=== PATIENT | male | born 1945 | race Caucasian/White ===

== ENCOUNTER 2021-04-08 01:01 | Emergency (ER) | payer MEDICARE ==
--- NOTE | 2021-04-08 01:12 | ERPHSYRPT ---
- History of Present Illness Time Seen by Provider: 04/08/21 01:04 Source: patient Exam Limitations: no limitations Physician History: The patient is a 75-year-old male with a past medical significant for hypertension presents with a chief complaint of palpitations. Onset was around 2200 this evening while at rest. He states he has had episodes off and on for the past 6 months that been brief and spontaneous resolved however this episode tonight would not resolve pro mpting him to seek treatment in the emergency department. He denies chest pain, shortness of breath, dizziness, syncope, nausea, vomiting or diaphoresis. The only takes medication for his blood pressure and denies any history of CAD, tachycardia, or new thyroid disease. He does not have a neurologist that he follows with as an outpatient. Timing/Duration: today Associated Symptoms: other (Palpitations), No nausea, No vomiting, No shortness of breath, No diaphoresis, No chest pain Allergies/Adverse Reactions: No Known Drug Allergies Allergy (Unverified 04/08/21 01:18) Home Medications: Finasteride 5 mg [Proscar 5 MG] 5 mg PO DAILY 04/08/21 [History] Losartan Potassium 100 mg PO DAILY 04/08/21 [History] Tamsulosin HCl 0.4 mg [Flomax 0.4 MG] 1 tab PO DAILY 04/08/21 [History] - Review of Systems Constitutional: No Fever, No Chills Respiratory: No Cough, No Cyanosis, No Dyspnea, No Dyspnea on Exertion (JMI) Cardiac: Palpitations, No Chest Pain, No Syncope, No Orthopnea Abdominal/Gastrointestinal: No Nausea, No Vomiting Genitourinary Symptoms: No Symptoms Musculoskeletal: No Symptoms Skin: No Symptoms Neurological: No Symptoms Psychological: No Symptoms All Other Systems: Reviewed and Negative - Nursing Vital Signs Nursing Vital Signs: Initial Vital Signs Temperature 96.8 F 04/08/21 01:02 Pulse Rate 198 H 04/08/21 01:02 Respiratory Rate 20 04/08/21 01:02 Blood Pressure 103/87 04/08/21 01:02 O2 Sat by Pulse Oximetry 99 04/08/21 01:02 Pain Scale Pain Intensity 0 - Physical Exam General Appearance: no apparent distress, alert Eye Exam: PERRL/EOMI, eyes nml inspection Ears, Nose, Throat Exam: normal ENT inspection, pharynx normal, moist mucous membranes Neck Exam: normal inspection, No non-tender, No supple Respiratory Exam: normal breath sounds, lungs clear, airway intact, No chest tenderness, No respiratory distress Cardiovascular Exam: regular rate/rhythm, tachycardia, other (SVT noted on the monitor. The patient had a 2+ radial pulse and seem to be tolerating his tachycardia well.), No murmur, No friction rub, No edema, No pulse deficit Gastrointestinal/Abdomen Exam: soft Back Exam: normal inspection Extremity Exam: normal inspection Neurologic Exam: alert, oriented x 3, cooperative Skin Exam: normal color, warm, dry, No rash SpO2: 99 O2 Delivery: Room Air - Course Nursing assessment & vital signs reviewed: Yes EKG Interpreted by Me: Left Yeoman Deviation, Left Bundle Branch Block, Other (SVT with aberrancy with a ventricular rate of 190 bpm.Left bundle branch block.) - Radiology Exams Chest X-ray Interpretation: Interpreted by me, Reviewed by me, Negative (No evidence of acute cardiopulmonary process.) Ordered Tests: Active Orders 24 hr Category Date Time Status [facility]iller STAT Care 04/08/21 01:07 Active EKG-ER Only STAT Care 04/08/21 01:06 Active IV Insertion STAT Care 04/08/21 01:06 Active CHEST 2 VIEWS (PA AND LAT) Stat Exams 04/08/21 01:06 Taken BMP Stat Lab 04/08/21 01:23 Completed CBC W DIFF Stat Lab 04/08/21 01:23 Completed MAGNESIUM Stat Lab 04/08/21 01:23 Completed NT PRO BNP Stat Lab 04/08/21 01:23 Completed PHOSPHOROUS Stat Lab 04/08/21 01:23 Completed TROPONIN Q3H Lab 04/08/21 01:23 Completed TROPONIN Q3H Lab 04/08/21 04:14 Completed TROPONIN Q3H Lab 04/08/21 07:15 Ordered TROPONIN Q3H Lab 04/08/21 10:15 Ordered TROPONIN Q3H Lab 04/08/21 13:15 Ordered TSH [TSH, 3RD Generation] Stat Lab 04/08/21 01:23 Completed Medication Summary Discontinued Medications Generic Name Dose Route Start Last Admin Trade Name Freq PRN Reason Stop Dose Admin Aspirin 324 mg 04/08/21 01:59 04/08/21 02:04 Aspirin 81 Mg Tab.Chew PO 04/08/21 02:00 324 mg STAT ONE Administration Metoprolol Succinate 25 mg 04/08/21 01:14 04/08/21 01:30 Metoprolol Succinate 25 Mg Xl Tab PO 04/08/21 01:15 25 mg STAT ONE Administration Metoprolol Succinate Confirm 04/08/21 01:30 Metoprolol Succinate 25 Mg Xl Tab Administered 04/08/21 01:31 Dose 25 mg .ROUTE .STK-MED ONE Lab/Rad Data: Laboratory Result Diagrams 04/08/21 01:23 04/08/21 01:23 Laboratory Results 04/08/21 04/08/21 04/08/21 Range/Units 04:14 01:23 01:23 WBC (4.0-10.5) K/mm3 RBC (4.1-5.6) M/mm3 Hgb (12.5-18.0) gm/dl Hct (42-50) % MCV (78-100) fl MCH (26-32) pg MCHC (32-36) g/dl RDW (11.5-14.0) % Plt Count (150-450) K/mm3 MPV (7.5-11.0) fl Gran % (36.0-66.0) % Eos # (Auto) (0-0.5) Absolute Lymphs (auto) (1.0-4.6) Absolute Monos (auto) (0.0-1.3) Lymphocytes % (24.0-44.0) % Monocytes % (0.0-12.0) % Eosinophils % (0.00-5.0) % Basophils % (0.0-0.4) % Absolute Granulocytes (1.4-6.9) Basophils # (0-0.4) Sodium (137-145) mmol/L Potassium (3.5-5.1) mmol/L Chloride (98-107) mmol/L Carbon Dioxide (22-30) mmol/L Anion Gap (5-15) MEQ/L BUN (9-20) mg/dL Creatinine (0.66-1.25) mg/dL Estimated GFR ML/MIN Glucose (74-106) mg/dL Calcium (8.4-10.2) mg/dL Phosphorus (2.5-4.5) mg/dL Magnesium (1.6-2.3) mg/dL Troponin I 0.144 H* 0.085 H* (0.000-0.034) ng/mL NT-Pro-B Natriuret Pep (0-1800) pg/mL TSH 3rd Generation 4.220 (0.47-4.68) mIU/L 04/08/21 04/08/21 Range/Units 01:23 01:23 WBC 9.3 (4.0-10.5) K/mm3 RBC 5.08 (4.1-5.6) M/mm3 Hgb 15.5 (12.5-18.0) gm/dl Hct 47.1 (42-50) % MCV 92.7 (78-100) fl MCH 30.5 (26-32) pg MCHC 32.9 (32-36) g/dl RDW 12.3 (11.5-14.0) % Plt Count 198 (150-450) K/mm3 MPV 10.6 (7.5-11.0) fl Gran % 53.3 (36.0-66.0) % Eos # (Auto) 0.16 (0-0.5) Absolute Lymphs (auto) 3.14 (1.0-4.6) Absolute Monos (auto) 1.02 (0.0-1.3) Lymphocytes % 33.8 (24.0-44.0) % Monocytes % 11.0 (0.0-12.0) % Eosinophils % 1.7 (0.00-5.0) % Basophils % 0.2 (0.0-0.4) % Absolute Granulocytes 4.94 (1.4-6.9) Basophils # 0.02 (0-0.4) Sodium 138 (137-145) mmol/L Potassium 4.1 (3.5-5.1) mmol/L Chloride 107 (98-107) mmol/L Carbon Dioxide 24 (22-30) mmol/L Anion Gap 11.5 (5-15) MEQ/L BUN 18 (9-20) mg/dL Creatinine 1.06 (0.66-1.25) mg/dL Estimated GFR > 60.0 ML/MIN Glucose 129 H (74-106) mg/dL Calcium 8.9 (8.4-10.2) mg/dL Phosphorus 3.5 (2.5-4.5) mg/dL Magnesium 2.0 (1.6-2.3) mg/dL Troponin I (0.000-0.034) ng/mL NT-Pro-B Natriuret Pep 1170 (0-1800) pg/mL TSH 3rd Generation (0.47-4.68) mIU/L - Progress Progress: improved Progress Note: 04/08/21 01:12 The patient converted to a sinus rhythm at a rate of 96 bpm after performing vagal maneuvers a couple times. Stated he was feeling better. 04/08/21 01:31 Nontoxic in appearance. The patient presents with an SVT that converted with vagal maneuvers. Looks like he is an underlying left bundle branch block that made the rhythm appeared like a wide-complex tachycardia but this is consistent with SVT with aberrancy. He is currently hemodynamically stable at this time and I will give him a dose of oral metoprolol to suppress his heart rate when he is symptomatic surge could be contributing to his symptoms. ALT and a cardiac work-up and assess his electrolytes and if he remains stable with no recurrent SVT, I believe he can be discharged home to follow-up as an outpatient with a club steward. I will see if there is a Holter monitor can be placed on the patient prior to discharge. I have a low suspicion for an ACS equivalent at this time in addition to a PE. I will test his thyroid function as well to make sure that over the screen for hyperthyroidism which could be contributing to his symptoms. Obtain a chest x-ray to eval for evidence of pneumonia or pulmonary mass. 04/08/21 01:34 04/08/21 02:02 The patient is troponin was mildly elevated and may be secondary to his tachycardia and is not due to a type I event and I have a low suspicion that this is secondary to a thrombus of the coronary artery or occlusion. I will seen a second troponin and talk to cardiology and a consulting manner about this we will arrange follow-up if the patient is indeed discharged. 04/08/21 02:48 The patient was reassessed upon that he was resting and in no obvious distress. His heart rate on telemetry was noted to be 70 to 80 bpm and appeared to be in normal sinus rhythm. I updated him with his work-up and his troponin was mildly elevated and this is likely secondary to his tachycardia. Will obtain a second troponin III hours after the first one and if there is no significant elevation, I believe he can be discharged home. 12/27/21 05:21 Patient's troponin is essentially doubled. He has no CP, but reportedly still nauseated. He wants to use the bathroom. 04/08/21 05:22 04/08/21 05:25 [facility] and on complete diversion. Calling on-call family med doc to see if will admit. 04/08/21 05:36 04/08/21 06:[address] Marcus and he agreed to admit for observation status. Patient will be admitted to med/surg with tele. Discussed with : Kaushik Counseled pt/family regarding: lab results, diagnosis, need for follow-up, rad results - Departure Departure Disposition: Observation Clinical Impression: SVT (supraventricular tachycardia), NSTEMI (non-ST elevated myocardial infarction) Condition: Good Critical Care Time: No Referrals: LEO CHRISTIANSON MD [Primary Care Provider] - Follow up/PCP as directed
[2021-04-08] MEDS ORDERED: Toprol-Xl 25MG Tablets PO ONE (01:14)
[2021-04-08 01:28] LABS: Absolute Neutrophil Ct (ANC) 4.94 (1.4-6.9); Basophil (Absolute #) 0.02 (0-0.4); Eosinophil % 1.7 % (0.00-5.0); Eosinophil (Absolute #) 0.16 (0-0.5); Hematocrit 47.1 % (42-50); Hemoglobin 15.5 gm/dl (12.5-18.0); Lymphocyte (Absolute #) 3.14 (1.0-4.6); Lymphocytes % 33.8 % (24.0-44.0); Mean Cell Volume 92.7 fl (78-100); Mean Corpuscular Hemoglobin 30.5 pg (26-32); Mean Corpuscular Hgb Concent. 32.9 g/dl (32-36); Mean Platelet Volume 10.6 fl (7.5-11.0); Monocyte (Absolute #) 1.02 (0.0-1.3); Neutrophil % 53.3 % (36.0-66.0); Platelet Count 198 K/mm3 (150-450); Red Blood Count 5.08 M/mm3 (4.1-5.6); Red Cell Distribution Width 12.3 % (11.5-14.0); White Blood Count 9.3 K/mm3 (4.0-10.5)
[2021-04-08] MEDS ORDERED: Toprol-Xl 25MG Tablets ONE (01:30)
[2021-04-08 01:47] LABS: ANION GAP 11.5 MEQ/L (5-15); BLOOD UREA NITROGEN 18 mg/dL (9-20); CHLORIDE 107 mmol/L (98-107); Calcium 8.9 mg/dL (8.4-10.2); Carbon Dioxide 24 mmol/L (22-30); Creatinine 1 1.06 mg/dL (0.66-1.25); EST GLOMERULAR FILTRATION RATE > 60.0 ML/MIN; Glucose 129 mg/dL (74-106); NT PRO BNP 1170 pg/mL (0-1800); PHOSPHOROUS 3.5 mg/dL (2.5-4.5); Potassium 4.1 mmol/L (3.5-5.1); SODIUM 138 mmol/L (137-145)
[2021-04-08] MEDS ORDERED: BABY ASPIRIN 81 MG CHEW PO ONE (01:59)
[2021-04-08 07:56] LABS: INFLUENZA A NEGATIVE (NEGATIVE); INFLUENZA B NEGATIVE (NEGATIVE); RESPIRATORY SYNCTIAL VIRUS NEGATIVE (Negative); SARS-CoV-2 Xpert Express NEGATIVE (NEGATIVE)
--- NOTE | 2021-04-08 09:19 | XRAY ---
Indication: Tachycardia. Comparison: January 04, 2015. PA/lateral chest again demonstrates normal heart and lungs with a few incidental tiny calcified granulomas. Bony thorax intact again with mild osteopenia, degenerative changes, and pectus excavatum deformity. No new/acute findings.
--- NOTE | 2021-04-08 11:44 | PCM.HP ---
History of Present Illness - Chief Complaint Chief Complaint: chest pain History of Present Illness: is a 75 year old male who presented to the ER last night with complaint of palpitations and shortness of breath, he had some diaphoresis as well. no chest pain, was found to have a heart rate of 190 on arrival, converted with vagal maneuvers, has an underlying left bundle once converted. 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 he has no complaints currently, no chest pain, no shortness of breath, no palpitations, feels well. - Review of Systems Constitutional: No Fever, No Chills Respiratory: No Cough, No Short Of Breath Cardiac: Palpitations, No Chest Pain, No Syncope, No Orthopnea, No PND Abdominal/Gastrointestinal: No Abdominal Pain, No Nausea, No Vomiting, No Diarrhea Genitourinary Symptoms: No Dysuria Skin: No Rash All Other Systems: Reviewed and Negative Medications & Allergies Home Medications: Home Medication List Finasteride 5 mg [Proscar 5 MG] 5 mg PO DAILY 04/08/21 [History Confirmed 04/08/21] Losartan Potassium 100 mg PO DAILY 04/08/21 [History Confirmed 04/08/21] Tamsulosin HCl 0.4 mg [Flomax 0.4 MG] 1 tab PO DAILY 04/08/21 [History Confirmed 04/08/21] Allergies/Adverse Reactions: Allergies Allergy/AdvReac Type Severity Reaction Status Date / Time No Known Drug Allergies Allergy Unverified 04/08/21 01:18 - Past Medical History Past Medical History: Yes Neurological History: No Pertinent History ENT History: No Pertinent History Cardiac History: Arrhythmia, Hypertension Respiratory History: Bronchitis Endocrine Medical History: No Pertinent History Musculoskelatal History: No Pertinent History GI Medical History: No Pertinent History History: No Pertinent History Pyscho-Social History: No Pertinent History Male Reproductive Disorders: Prostate Problems - Past Surgical History Past Surgical History: Yes Neuro Surgical History: No Pertinent History Cardiac History: No Pertinent History Respiratory Surgery: No Pertinent History GI Surgical History: Hemorrhoidectomy Genitourinary Surgical Hx: No Pertinent History Musculskeletal Surgical Hx: No Pertinent History Male Surgical History: No Pertinent History - Social History Smoking Status: Former smoker How long have you smoked: 20 Exposure to second hand smoke: No Alcohol: None Drug Use: none - Physical Exam Vital Signs: Vital Signs - 24 hr Temp Pulse Pulse Resp BP Pulse Ox 04/08/21 08:21 56 L 18 124/78 97 04/08/21 06:48 62 14 129/77 96 04/08/21 06:15 99 04/08/21 06:08 98.3 F 64 20 130/76 98 04/08/21 05:30 68 14 103/60 97 04/08/21 04:26 68 16 119/76 96 04/08/21 03:00 65 12 125/78 95 04/08/21 02:00 84 14 130/88 97 04/08/21 01:04 198 H 04/08/21 01:02 96.8 F 198 H 20 103/87 99 General Appearance: no apparent distress Neurologic Exam: alert, oriented x 3, cooperative Respiratory Exam: normal breath sounds, lungs clear, No respiratory distress Cardiovascular Exam: regular rate/rhythm, normal heart sounds, normal peripheral pulses Gastrointestinal/Abdomen Exam: soft, normal bowel sounds, No tenderness, No mass Extremity Exam: normal inspection, normal range of motion, pelvis stable Skin Exam: normal color, warm, dry, No rash Results - Labs Lab/Micro Results: Lab Results-Last 24 Hours 04/08/21 04/08/21 04/08/21 Range/Units 01:23 01:23 01:23 WBC 9.3 (4.0-10.5) K/mm3 RBC 5.08 (4.1-5.6) M/mm3 Hgb 15.5 (12.5-18.0) gm/dl Hct 47.1 (42-50) % MCV 92.7 (78-100) fl MCH 30.5 (26-32) pg MCHC 32.9 (32-36) g/dl RDW 12.3 (11.5-14.0) % Plt Count 198 (150-450) K/mm3 MPV 10.6 (7.5-11.0) fl Gran % 53.3 (36.0-66.0) % Eos # (Auto) 0.16 (0-0.5) Absolute Lymphs (auto) 3.14 (1.0-4.6) Absolute Monos (auto) 1.02 (0.0-1.3) Lymphocytes % 33.8 (24.0-44.0) % Monocytes % 11.0 (0.0-12.0) % Eosinophils % 1.7 (0.00-5.0) % Basophils % 0.2 (0.0-0.4) % Absolute Granulocytes 4.94 (1.4-6.9) Basophils # 0.02 (0-0.4) Sodium 138 (137-145) mmol/L Potassium 4.1 (3.5-5.1) mmol/L Chloride 107 (98-107) mmol/L Carbon Dioxide 24 (22-30) mmol/L Anion Gap 11.5 (5-15) MEQ/L BUN 18 (9-20) mg/dL Creatinine 1.06 (0.66-1.25) mg/dL Estimated GFR > 60.0 ML/MIN Glucose 129 H (74-106) mg/dL Calcium 8.9 (8.4-10.2) mg/dL Phosphorus 3.5 (2.5-4.5) mg/dL Magnesium 2.0 (1.6-2.3) mg/dL Troponin I 0.085 H* (0.000-0.034) ng/mL NT-Pro-B Natriuret Pep 1170 (0-1800) pg/mL TSH 3rd Generation (0.47-4.68) mIU/L Influenza Type A Ag (NEGATIVE) Influenza Type B Ag (NEGATIVE) RSV (PCR) (Negative) SARS-CoV-2 (PCR) (NEGATIVE) 04/08/21 04/08/21 04/08/21 Range/Units 01:23 04:14 06:17 WBC (4.0-10.5) K/mm3 RBC (4.1-5.6) M/mm3 Hgb (12.5-18.0) gm/dl Hct (42-50) % MCV (78-100) fl MCH (26-32) pg MCHC (32-36) g/dl RDW (11.5-14.0) % Plt Count (150-450) K/mm3 MPV (7.5-11.0) fl Gran % (36.0-66.0) % Eos # (Auto) (0-0.5) Absolute Lymphs (auto) (1.0-4.6) Absolute Monos (auto) (0.0-1.3) Lymphocytes % (24.0-44.0) % Monocytes % (0.0-12.0) % Eosinophils % (0.00-5.0) % Basophils % (0.0-0.4) % Absolute Granulocytes (1.4-6.9) Basophils # (0-0.4) Sodium (137-145) mmol/L Potassium (3.5-5.1) mmol/L Chloride (98-107) mmol/L Carbon Dioxide (22-30) mmol/L Anion Gap (5-15) MEQ/L BUN (9-20) mg/dL Creatinine (0.66-1.25) mg/dL Estimated GFR ML/MIN Glucose (74-106) mg/dL Calcium (8.4-10.2) mg/dL Phosphorus (2.5-4.5) mg/dL Magnesium (1.6-2.3) mg/dL Troponin I 0.144 H* (0.000-0.034) ng/mL NT-Pro-B Natriuret Pep (0-1800) pg/mL TSH 3rd Generation 4.220 (0.47-4.68) mIU/L Influenza Type A Ag NEGATIVE (NEGATIVE) Influenza Type B Ag NEGATIVE (NEGATIVE) RSV (PCR) NEGATIVE (Negative) SARS-CoV-2 (PCR) NEGATIVE (NEGATIVE) 04/08/21 04/08/21 Range/Units 06:50 10:10 WBC (4.0-10.5) K/mm3 RBC (4.1-5.6) M/mm3 Hgb (12.5-18.0) gm/dl Hct (42-50) % MCV (78-100) fl MCH (26-32) pg MCHC (32-36) g/dl RDW (11.5-14.0) % Plt Count (150-450) K/mm3 MPV (7.5-11.0) fl Gran % (36.0-66.0) % Eos # (Auto) (0-0.5) Absolute Lymphs (auto) (1.0-4.6) Absolute Monos (auto) (0.0-1.3) Lymphocytes % (24.0-44.0) % Monocytes % (0.0-12.0) % Eosinophils % (0.00-5.0) % Basophils % (0.0-0.4) % Absolute Granulocytes (1.4-6.9) Basophils # (0-0.4) Sodium (137-145) mmol/L Potassium (3.5-5.1) mmol/L Chloride (98-107) mmol/L Carbon Dioxide (22-30) mmol/L Anion Gap (5-15) MEQ/L BUN (9-20) mg/dL Creatinine (0.66-1.25) mg/dL Estimated GFR ML/MIN Glucose (74-106) mg/dL Calcium (8.4-10.2) mg/dL Phosphorus (2.5-4.5) mg/dL Magnesium (1.6-2.3) mg/dL Troponin I 0.223 H* 0.281 H* (0.000-0.034) ng/mL NT-Pro-B Natriuret Pep (0-1800) pg/mL TSH 3rd Generation (0.47-4.68) mIU/L Influenza Type A Ag (NEGATIVE) Influenza Type B Ag (NEGATIVE) RSV (PCR) (Negative) SARS-CoV-2 (PCR) (NEGATIVE) - Radiology Impressions Radiology Exams & Impressions: Radiology Procedures Category Date Time Status CHEST 2 VIEWS (PA AND LAT) Stat Exams 04/08/21 01:06 Completed ECHO W/2D AND DOPPLER [US] Routine Exams 04/08/21 06:11 Ordered - Other Procedures and Tests Respiratory Therapy 04/08/21 06:10 EKG Q8HX2,QAMX3,PRN EKG STAT Assessment/Plan (1) SVT (supraventricular tachycardia) Current Visit: Yes Status: Acute Assessment & Plan: appears to have had svt with abberancy since underlying left bundle. elevated troponin is likely related to rate in my opinion. echo is being done currently, uap to consult for cardiology. was given beta madi in ER, will continue. TSH wnl Code(s): I47.1 - SUPRAVENTRICULAR TACHYCARDIA (2) Left bundle branch block (LBBB) Current Visit: Yes Status: Acute Assessment & Plan: checking system for historical ekg, uncertain on chronicity of this finding. ech o and cardiology consult pending. Code(s): I44.7 - LEFT BUNDLE-BRANCH BLOCK, UNSPECIFIED (3) Elevated troponin Current Visit: Yes Status: Acute Code(s): R77.8 - OTHER SPECIFIED ABNORMALITIES OF PLASMA PROTEINS (4) Essential hypertension Current Visit: Yes Status: Acute Code(s): I10 - ESSENTIAL (PRIMARY) HYPERTENSION
[2021-04-08] MEDS: Proscar 5 MG PO SCH (14:40)
[2021-04-08] MEDS: Flomax 0.4 MG PO SCH (14:40)
[2021-04-08] MEDS: Cozaar 50 MG PO SCH (14:40)
[2021-04-09 06:10] LABS: Absolute Neutrophil Ct (ANC) 2.23 (1.4-6.9); Basophil (Absolute #) 0.03 (0-0.4); Eosinophil % 2.8 % (0.00-5.0); Eosinophil (Absolute #) 0.14 (0-0.5); Hemoglobin 14.5 gm/dl (12.5-18.0); Lymphocyte (Absolute #) 1.96 (1.0-4.6); Lymphocytes % 39.7 % (24.0-44.0); Mean Cell Volume 93.8 fl (78-100); Mean Corpuscular Hemoglobin 30.9 pg (26-32); Mean Platelet Volume 10.6 fl (7.5-11.0); Monocyte (Absolute #) 0.58 (0.0-1.3); Monocytes % 11.7 % (0.0-12.0); Neutrophil % 45.2 % (36.0-66.0); Platelet Count 181 K/mm3 (150-450); Red Blood Count 4.69 M/mm3 (4.1-5.6); Red Cell Distribution Width 12.3 % (11.5-14.0); White Blood Count 4.9 K/mm3 (4.0-10.5)
[2021-04-09 06:39] LABS: Risk Ratio 4.1
[2021-04-09 09:07] LABS: ANION GAP 10.6 MEQ/L (5-15); BLOOD UREA NITROGEN 15 mg/dL (9-20); CHLORIDE 108 mmol/L (98-107); Calcium 8.4 mg/dL (8.4-10.2); Carbon Dioxide 24 mmol/L (22-30); Creatinine 1 0.96 mg/dL (0.66-1.25); EST GLOMERULAR FILTRATION RATE > 60.0 ML/MIN; Glucose 98 mg/dL (74-106); MAGNESIUM 2.2 mg/dL (1.6-2.3); Potassium 4.1 mmol/L (3.5-5.1); SODIUM 138 mmol/L (137-145)
--- NOTE | 2021-04-09 09:50 | ECHO ---
Transthoracic echocardiographic examination and color Doppler was done on 04/08/2021. INDICATION: SVT and elevated troponin I. IMPRESSION: 1) THE LEFT VENTRICLE WAS ONLY PARTIALLY VISUALIZED MOSTLY IN THE PARASTERNAL VIEW. THIS DEMONSTRATED MILD HYPOKINESIA OF THE MID TO DISTAL SEPTUM. 2) THERE IS SOME MILD LEFT VENTRICULAR HYPERTROPHY. 3) THE MITRAL VALVE WAS SEEN AND THIS OPENS ADEQUATELY. THERE IS MILD MITRAL REGURGITATION. 4) THE AORTIC VALVE APPEARS TO OPEN ADEQUATELY. 5) THERE IS MINIMAL TRICUSPID REGURGITATION WITH RIGHT VENTRICULAR SYSTOLIC PRESSURE OF 30 MM OF MERCURY. This is a fairly limited study which precludes adequate assessment of intracardiac anatomy and physiology.
[2021-04-09] MEDS ORDERED: Toprol Xl 50 MG PO SCH (10:00)
[2021-04-09] MEDS ORDERED: NON-FORMULARY ITEM (Losartan Potassium [Losartan Potassium] 100 MG Tablet) PO SCH (10:00)
[2021-04-09] MEDS ORDERED: ECOTRIN 81 MG PO SCH (10:00)
[2021-04-09] MEDS ORDERED: Toprol-Xl 25MG Tablets PO SCH (10:00)
[2021-04-09] MEDS ORDERED: ZOCOR 20MG PO SCH (10:00)
--- NOTE | 2021-04-09 10:19 | PCM.DS ---
Discharge Summary Date of Admission: 04/08/21 08:43 Admitting Physician: LEO CHRISTIANSON Consults: Consults on Case 04/08/21 06:11 Consult Cardiology ROUTINE 04/08/21 10:00 Consult Cardiology ROUTINE Primary Care Provider: LEO CHRISTIANSON Allergies Allergies No Known Drug Allergies Allergy (Unverified 04/08/21 01:18) Hospital Summary - Hospital Course Hospital Course: pt arrived with palpitations and elevated heart rate, appeared to have SVT with left bundle branch block, converted with vagal maneuvers and started on beta madi, troponin increased but appears related to his heart rate as he has no chest pain, no shortness of breath and feels well. was seen by Dr Manuela Monterroso and will have outpatient lexiscan and continue low dose beta madi - Vitals & Intake/Output Vital Signs: Vital Signs Temperature 97.3 F 04/09/21 04:00 Pulse Rate 57 L 04/09/21 04:00 Respiratory Rate 16 04/09/21 04:00 Blood Pressure 100/56 04/09/21 04:00 O2 Sat by Pulse Oximetry 96 04/09/21 04:00 Intake & Output: Intake & Output 04/06/21 04/07/21 04/08/21 04/09/21 11:59 11:59 11:59 11:59 Intake Total 520 Output Total 150 Balance 370 Weight 84 kg 83.9 kg - Lab Result Diagrams: 04/09/21 05:55 04/09/21 05:55 Lab Results-Last 24 Hrs: Lab Results-Last 24 Hours 04/08/21 04/08/21 04/09/21 Range/Units 10:10 13:15 05:55 WBC (4.0-10.5) K/mm3 RBC (4.1-5.6) M/mm3 Hgb (12.5-18.0) gm/dl Hct (42-50) % MCV (78-100) fl MCH (26-32) pg MCHC (32-36) g/dl RDW (11.5-14.0) % Plt Count (150-450) K/mm3 MPV (7.5-11.0) fl Gran % (36.0-66.0) % Eos # (Auto) (0-0.5) Absolute Lymphs (auto) (1.0-4.6) Absolute Monos (auto) (0.0-1.3) Lymphocytes % (24.0-44.0) % Monocytes % (0.0-12.0) % Eosinophils % (0.00-5.0) % Basophils % (0.0-0.4) % Absolute Granulocytes (1.4-6.9) Basophils # (0-0.4) Sodium (137-145) mmol/L Potassium (3.5-5.1) mmol/L Chloride (98-107) mmol/L Carbon Dioxide (22-30) mmol/L Anion Gap (5-15) MEQ/L BUN (9-20) mg/dL Creatinine (0.66-1.25) mg/dL Estimated GFR ML/MIN Glucose (74-106) mg/dL Calcium (8.4-10.2) mg/dL Magnesium (1.6-2.3) mg/dL Troponin I 0.281 H* 0.297 H* (0.000-0.034) ng/mL Triglycerides 78 (30-150) mg/dL Cholesterol 158 (50-200) mg/dL LDL Cholesterol 97 (30-100) mg/dL HDL Cholesterol 38 L (40-60) mg/dL Heart Disease Risk Ratio 4.1 04/09/21 04/09/21 04/09/21 Range/Units 05:55 05:55 09:58 WBC 4.9 (4.0-10.5) K/mm3 RBC 4.69 (4.1-5.6) M/mm3 Hgb 14.5 (12.5-18.0) gm/dl Hct 44.0 (42-50) % MCV 93.8 (78-100) fl MCH 30.9 (26-32) pg MCHC 33.0 (32-36) g/dl RDW 12.3 (11.5-14.0) % Plt Count 181 (150-450) K/mm3 MPV 10.6 (7.5-11.0) fl Gran % 45.2 (36.0-66.0) % Eos # (Auto) 0.14 (0-0.5) Absolute Lymphs (auto) 1.96 (1.0-4.6) Absolute Monos (auto) 0.58 (0.0-1.3) Lymphocytes % 39.7 (24.0-44.0) % Monocytes % 11.7 (0.0-12.0) % Eosinophils % 2.8 (0.00-5.0) % Basophils % 0.6 (0.0-0.4) % Absolute Granulocytes 2.23 (1.4-6.9) Basophils # 0.03 (0-0.4) Sodium 138 (137-145) mmol/L Potassium 4.1 (3.5-5.1) mmol/L Chloride 108 H (98-107) mmol/L Carbon Dioxide 24 (22-30) mmol/L Anion Gap 10.6 (5-15) MEQ/L BUN 15 (9-20) mg/dL Creatinine 0.96 (0.66-1.25) mg/dL Estimated GFR > 60.0 ML/MIN Glucose 98 (74-106) mg/dL Calcium 8.4 (8.4-10.2) mg/dL Magnesium 2.2 (1.6-2.3) mg/dL Troponin I 0.203 H* (0.000-0.034) ng/mL Triglycerides (30-150) mg/dL Cholesterol (50-200) mg/dL LDL Cholesterol (30-100) mg/dL HDL Cholesterol (40-60) mg/dL Heart Disease Risk Ratio - Radiology Exams Ordered Rad Exams-Entire Visit: Radiology Procedures Category Date Time Status CHEST 2 VIEWS (PA AND LAT) Stat Exams 04/08/21 01:06 Completed ECHO W/2D AND DOPPLER [US] Routine Exams 04/08/21 06:11 Draft - Procedures and Test Procedures and Tests throughout Hospitalization: Therapy Orders & Screens 04/08/21 06:10 EKG Q8HX2,QAMX3,PRN Comment: Diagnosis: CHEST PAIN EKG STAT Comment: Diagnosis: chest pain Discharge Exam General Appearance: no apparent distress Neurologic Exam: alert, oriented x 3 Respiratory Exam: normal breath sounds, lungs clear, No respiratory distress Cardiovascular Exam: regular rate/rhythm, normal heart sounds Gastrointestinal/Abdomen Exam: soft, No tenderness, No mass Extremity Exam: normal inspection, normal range of motion Skin Exam: normal color, warm, dry Final Diagnosis/Problem List - Final Discharge Diagnosis/Problem (1) SVT (supraventricular tachycardia) Current Visit: Yes Status: Acute Assessment & Plan: continue metoprolol 25mg daily Code(s): I47.1 - SUPRAVENTRICULAR TACHYCARDIA (2) Left bundle branch block (LBBB) Current Visit: Yes Status: Acute Code(s): I44.7 - LEFT BUNDLE-BRANCH BLOCK, UNSPECIFIED (3) Elevated troponin Current Visit: Yes Status: Acute Assessment & Plan: lexiscan ordered Code(s): R77.8 - OTHER SPECIFIED ABNORMALITIES OF PLASMA PROTEINS (4) Essential hypertension Current Visit: Yes Status: Acute Code(s): I10 - ESSENTIAL (PRIMARY) HYPERTE NSION - Discharge Disposition: Home, Self-Care Condition: Good Prescriptions: New Aspirin EC 81 mg [Ecotrin 81 mg] 81 mg PO DAILY #30 tab Metoprolol Succinate 25 mg Xl* [Toprol-Xl 25MG Tablets] 25 mg PO DAILY #30 tab Continue Tamsulosin HCl 0.4 mg [Flomax 0.4 MG] 1 tab PO DAILY Losartan Potassium 100 mg PO DAILY Finasteride 5 mg [Proscar 5 MG] 5 mg PO DAILY Outpatient Orders: Stress Test: Bree Facility: [facility], Location: [facility]PIRATORY [facility]ERAPY Follow up with: LEO CHRISTIANSON MD [Primary Care Provider] - 1 Week MANUELA MONTERROSO MD [CONSULTING PHYSICIAN] - Call for Appointment
[2021-04-09 10:21] VITALS: BP 128/72; PULSE 56; O2SAT 98
[2021-04-09] MEDS: Flomax 0.4 MG PO SCH (10:46)
[2021-04-09] MEDS: Cozaar 50 MG PO SCH (10:47)
[2021-04-09] MEDS: Proscar 5 MG PO SCH (10:48)
--- NOTE | 2021-04-09 11:33 | CONS ---
CONSULT DATE: 04/09/2021 REASON FOR CONSULT: Supraventricular tachycardia, mildly elevated troponin. HISTORY: Gian Mejia is a 75-year-old gentleman with a history of hypertension who presented to the emergency department yesterday evening with chief complaint of palpitation. The episode abruptly started around 2200 hours on 04/08/2021. He presented to the emergency department where he was found to be tachycardic to the 190's and ECG demonstrated wide complex tachycardia with a left bundle branch morphology. The patient performed Valsalva maneuver at instruction of emergency room staff and the tachycardia self-terminated. He was also given oral metoprolol. Underlying QRS morphology while he was in normal sinus rhythm was similar to his tachycardic rhythm consistent with a left bundle branch block. He felt fine with no recurrence of palpitations or tachycardia. However, his initial troponins were mildly elevated and repeat troponin was slightly up from there. Subsequent troponins were gradually up trending with peak in the 0.25 range, this was checked yesterday around 1300 hours. There has been no repeat troponin check thereafter. He denies any recurrent palpitations. He has not had any chest pain, shortness of breath, orthopnea, paroxysmal nocturnal dyspnea, dizziness or syncope. He was given one dose of oral metoprolol and heart rate on telemetry has dropped to the low 40's while the patient was sleeping and earlier this morning after the patient had just awaken his heart rate was in the high 40's to low 50's. He reports he feels somewhat fatigued but he does not have any dizziness. He has not had any changes in exertional capacity prior to today and was otherwise in good health. There is no evidence of infection. REVIEW OF SYSTEMS: Fourteen system review performed. Pertinent positives noted in H&P otherwise negative. ALLERGIES: NKDA. MEDICATIONS: Home medications are reviewed. Please see the EMR for full details. He is on losartan, tamsulosin, finasteride. PAST MEDICAL HISTORY: Hypertension. SOCIAL HISTORY: He is a former smoker. He denies any alcohol or illicit drug use. FAMILY HISTORY: No premature coronary artery disease. No sudden cardiac . PHYSICAL EXAMINATION: VITAL SIGNS: Temperature 97.3F, heart rate 54, blood pressure 111/61. Saturating 95% on room air. GENERAL: No acute distress. Conversant, well developed, well nourished. HEENT: Eyes - Nonicteric sclera. Conjunctiva normal. ENT: Hearing grossly intact. No nasal discharge. NECK: Supple, full range of motion. No thyromegaly. Jugular venous pulsation is normal. It is not elevated. RESPIRATORY: Good effort, clear to auscultation bilaterally. No accessory muscle use. CVS: Slightly bradycardic but regular rhythm. No murmurs, rubs or gallops. No carotid bruits. No peripheral edema. GI: Abdomen soft, nontender, nondistended. No rebound or guarding. MUSCULOSKELETAL: Normal muscle bulk and tone. NEUROLOGICAL: Grossly nonfocal. SKIN: Warm, well perfused. No rashes. PSYCH: Alert, oriented x4, appropriate insight and judgement. LAB DATA AND TESTS: Laboratory data reviewed. CBC is normal with normal white blood count. Creatinine is 1.06. Potassium is normal. NT-Pro-BNP is within normal range at 1170. Troponin I peaked at 0.297 yesterday at 1315 hours and it gradually up trended. Respiratory viral panel including COVID-19, influenza A, B and respiratory syncytial virus were negative. EKG initial presentation demonstrates supraventricular tachycardia with wide complex left bundle pattern which is similar to subsequent repeat EKG which demonstrated sinus rhythm and left bundle branch block. There does appear to be a retrograde P-wave at the distal portion of the QRS complex consistent an AV sujata reentrant tachycardia. 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 2) Mildly elevated troponin most consistent with type 2 myocardial infarction. 3) History of hypertension. RECOMMENDATIONS: I would continue low dose Toprol XL 25 mg p.o. daily, continue aspirin 81 mg daily and initiate atorvastatin 20 mg q.h.s. I will follow up on echo which has already been done to evaluate for any structural abnormalities and repeat a troponin. If the troponin is down trending, I feel it would be reasonable to discharge the [facility] Please note that the patient does have an underlying left bundle branch block thus pharmacological stress test is the preferred option to further evaluation his mildly elevated troponin. I will then follow up with him in the office as an outpatient.
== END 2021-04-09 11:20 | disposition home or self-care (01) ==
LOC: ED 01:01 → MED SURG 08:43
PROVIDERS: ADMIT Family Medicine; ATTEND Family Medicine
DX: I47.1 Supraventricular tachycardia (principal); I44.7 Left bundle-branch block, unspecified; R77.8 Other specified abnormalities of plasma proteins; I10 Essential (primary) hypertension; Z79.899 Other long term (current) drug therapy; R06.02 Shortness of breath; Z20.828 Contact with and (suspected) exposure to other viral communicable diseases
CPT/HCPCS: 0241U; 36000; 36415; 71046; 80048; 80061; 83721; 83735; 83880; 84100; 84443; 84484; 85025; 93005; 93041; 93268; 93306; 99285; G0378; A9270-GY

== ENCOUNTER 2021-07-12 05:36 | Emergency (ER) | payer MEDICARE ==
[2021-07-12] MEDS ORDERED: BABY ASPIRIN 81 MG CHEW PO ONE (05:37)
[2021-07-12] MEDS ORDERED: Sodium Chloride 0.9% 1000 ML 1,000 ML ONE (05:56)
[2021-07-12] MEDS ORDERED: Adenocard IV 6 MG/2 ML IV ONE ×2 (05:56→06:02)
[2021-07-12] MEDS ORDERED: Zofran 4 MG/2 ML VIAL ONE (05:56)
[2021-07-12 06:04] LABS: Absolute Neutrophil Ct (ANC) 6.02 (1.4-6.9); Basophil (Absolute #) 0.02 (0-0.4); Eosinophil % 1.2 % (0.00-5.0); Eosinophil (Absolute #) 0.11 (0-0.5); Hematocrit 48.1 % (42-50); Hemoglobin 16.1 gm/dl (12.5-18.0); Lymphocyte (Absolute #) 1.94 (1.0-4.6); Lymphocytes % 21.9 % (24.0-44.0); Mean Cell Volume 93.2 fl (78-100); Mean Corpuscular Hemoglobin 31.2 pg (26-32); Mean Corpuscular Hgb Concent. 33.5 g/dl (32-36); Mean Platelet Volume 10.4 fl (7.5-11.0); Monocyte (Absolute #) 0.75 (0.0-1.3); Monocytes % 8.5 % (0.0-12.0); Neutrophil % 68.2 % (36.0-66.0); Platelet Count 207 K/mm3 (150-450); Red Blood Count 5.16 M/mm3 (4.1-5.6); Red Cell Distribution Width 12.5 % (11.5-14.0); White Blood Count 8.8 K/mm3 (4.0-10.5)
[2021-07-12] MEDS ORDERED: Magnesium 1 Gm / 100 Ml D5W*** 100 ML IV ONE ×2 (06:08→06:47)
--- NOTE | 2021-07-12 06:14 | ERPHSYRPT ---
- History of Present Illness Time Seen by Provider: 07/12/21 05:51 Historian: patient Exam Limitations: no limitations Physician History: 76-year-old male with history of hypertension, hyperlipidemia, paroxysmal SVT, BPH presented to the ER with chief complaint of palpitations since last night 8 PM, continuous, tried welts follow-up with manual orders without any relief. Denies any significant aggravating/relieving factors. No difficulty breathing. No chest tightness pressure but having rapid heart rate. Timing/Duration: yesterday, constant, sudden Severity of Pain-Max: none Severity of Pain-Current: none Modifying Factors: Improves With: nothing Associated Symptoms: palpitations Nitro Today/Relief: no nitro taken today Aspirin Treatment Today: no aspirin today Allergies/Adverse Reactions: No Known Drug Allergies Allergy (Verified 07/12/21 05:46) Home Medications: Finasteride 5 mg [Proscar 5 MG] 5 mg PO DAILY 04/08/21 [History] Losartan Potassium 100 mg PO DAILY 04/08/21 [History] Tamsulosin HCl 0.4 mg [Flomax 0.4 MG] 1 tab PO DAILY 04/08/21 [History] Hx Tetanus, Diphtheria Vaccination/Date Given: No Hx Influenza Vaccination/Date Given: Yes Hx Pneumococcal Vaccination/Date Given: No Travel Risk - Vaccine Status Have you recieved a Covid-19 vaccination: Yes Outpatient Therapist: Moderna - Vaccination Dates Date of 2cond Vaccination (if applicable): 2020 - Review of Systems Constitutional: No Symptoms Eyes: No Symptoms Ears, Nose, & Throat: No Symptoms Respiratory: No Symptoms Cardiac: Palpitations Abdominal/Gastrointestinal: No Symptoms Genitourinary Symptoms: No Symptoms Musculoskeletal: No Symptoms Skin: No Symptoms Neurological: No Symptoms Psychological: No Symptoms Endocrine: No Symptoms Hematologic/Lymphatic: No Symptoms Immunological/Allergic: No Symptoms - Past Medical History Pertinent Past Medical History: Yes Neurological History: No Pertinent History ENT History: No Pertinent History Cardiac History: Arrhythmia, Hypertension Respiratory History: Bronchitis Endocrine Medical History: No Pertinent History Musculoskeletal History: No Pertinent History GI Medical History: No Pertinent History History: No Pertinent History Psycho-Social History: No Pertinent History Male Reproductive Disorders: Prostate Problems - Past Surgical History Past Surgical History: Yes Neuro Surgical History: No Pertinent History Cardiac: No Pertinent History Respiratory: No Pertinent History Gastrointestinal: Hemorrhoidectomy Genitourinary: No Pertinent History Musculoskeletal: No Pertinent History Male Surgical History: No Pertinent History - Social History Smoking Status: Former smoker How long have you smoked: 20 Exposure to second hand smoke: No Drug Use: none Patient Lives Alone: No - Nursing Vital Signs Nursing Vital Signs: Initial Vital Signs Temperature 97.6 F 07/12/21 06:05 Pulse Rate 178 H 07/12/21 06:05 Respiratory Rate 18 07/12/21 06:05 Blood Pressure 103/80 07/12/21 06:05 O2 Sat by Pulse Oximetry 97 07/12/21 06:05 Pain Scale Pain Intensity 0 - Physical Exam General Appearance: no apparent distress, alert, anxiety Eye Exam: PERRL/EOMI, eyes nml inspection Ears, Nose, Throat Exam: normal ENT inspection, pharynx normal, moist mucous membranes Neck Exam: normal inspection, supple, full range of motion Respiratory Exam: normal breath sounds, lungs clear Cardiovascular Exam: normal heart sounds, tachycardia Gastrointestinal/Abdomen Exam: soft, normal bowel sounds, No tenderness Back Exam: normal inspection, normal range of motion Extremity Exam: normal inspection, normal range of motion Neurologic Exam: alert, oriented x 3, cooperative, np II-XII nml as tested, nml station & gait, sensation nml, No motor deficits Skin Exam: normal color SpO2 Interpretation: normal SpO2: 97 O2 Delivery: Room Air - Course EKG Interpreted by Me: RATE (182), SVT, NORMAL AXIS, prolonged QT interval (Second EKG time 6 or 2 AM. Rate 84 rhythm sinus, left bundle branch block, nonspecific ST and T wave changes. Normal intervals. ), Left Bundle Branch Block Ordered Tests: Active Orders 24 hr Category Date Time Status Mortar Maker STAT Care 07/12/21 05:52 Active EKG-ER Only STAT Care 07/12/21 05:52 Active IV Insertion STAT Care 07/12/21 05:52 Active CHEST 1 VIEW (PORTABLE) Stat Exams 07/12/21 05:52 Taken BNP [NT PRO BNP] Stat Lab 07/12/21 05:50 Received CBC W DIFF Stat Lab 07/12/21 05:50 Completed CMP Stat Lab 07/12/21 05:50 Completed NT PRO BNP Stat Lab 07/12/21 05:50 Completed TROPONIN Q3H Lab 07/12/21 05:50 Completed TROPONIN Q3H Lab 07/12/21 09:00 Ordered TROPONIN Q3H Lab 07/12/21 12:00 Ordered TROPONIN Q3H Lab 07/12/21 15:00 Ordered TROPONIN Q3H Lab 07/12/21 18:00 Ordered Medication Summary Discontinued Medications Generic Name Dose Route Start Last Admin Trade Name Stephan PRN Reason Stop Dose Admin Adenosine Confirm 07/12/21 05:56 Adenosine 6 Mg/2 Ml Vial Administered 07/12/21 05:57 Dose 6 mg IV .STK-MED ONE Adenosine Confirm 07/12/21 06:02 Adenosine 6 Mg/2 Ml Vial Administered 07/12/21 06:03 Dose 12 mg IV .STK-MED ONE Sodium Chloride Confirm 07/12/21 05:56 Sodium Chloride 0.9% 1000 Ml Administered 07/12/21 05:57 Dose 1,000 mls @ ud .ROUTE .STK-MED ONE Magnesium Sulfate/Dextrose Confirm 07/12/21 06:08 Magnesium 1 Gm / 100 Ml D5w Administered 07/12/21 06:09 Dose 100 mls @ ud IV .STK-MED ONE Magnesium Sulfate/Dextrose Confirm 07/12/21 06:47 Magnesium 1 Gm / 100 Ml D5w Administered 07/12/21 06:48 Dose 100 mls @ ud IV .STK-MED ONE Ondansetron HCl Confirm 07/12/21 05:56 Ondansetron Hcl 4 Mg/2 Ml Vial Administered 07/12/21 05:57 Dose 4 mg .ROUTE .STK-MED ONE Lab/Rad Data: Laboratory Result Diagrams 07/12/21 05:50 07/12/21 05:50 Laboratory Results 07/12/21 07/12/21 07/12/21 Range/Units 05:50 05:50 05:50 WBC 8.8 (4.0-10.5) K/mm3 RBC 5.16 (4.1-5.6) M/mm3 Hgb 16.1 (12.5-18.0) gm/dl Hct 48.1 (42-50) % MCV 93.2 (78-100) fl MCH 31.2 (26-32) pg MCHC 33.5 (32-36) g/dl RDW 12.5 (11.5-14.0) % Plt Count 207 (150-450) K/mm3 MPV 10.4 (7.5-11.0) fl Gran % 68.2 H (36.0-66.0) % Eos # (Auto) 0.11 (0-0.5) Absolute Lymphs (auto) 1.94 (1.0-4.6) Absolute Monos (auto) 0.75 (0.0-1.3) Lymphocytes % 21.9 L (24.0-44.0) % Monocytes % 8.5 (0.0-12.0) % Eosinophils % 1.2 (0.00-5.0) % Basophils % 0.2 (0.0-0.4) % Absolute Granulocytes 6.02 (1.4-6.9) Basophils # 0.02 (0-0.4) Sodium 141 (137-145) mmol/L Potassium 4.4 (3.5-5.1) mmol/L Chloride 107 (98-107) mmol/L Carbon Dioxide 23 (22-30) mmol/L Anion Gap 15.1 H (5-15) MEQ/L BUN 13 (9-20) mg/dL Creatinine 1.10 (0.66-1.25) mg/dL Estimated GFR > 60.0 ML/MIN Glucose 151 H (74-106) mg/dL Calcium 9.0 (8.4-10.2) mg/dL Total Bilirubin 1.70 H (0.2-1.3) mg/dL AST 22 (17-59) U/L ALT 18 (0-50) U/L Alkaline Phosphatase 61 (38-126) U/L Troponin I < 0.012 (0.000-0.034) ng/mL NT-Pro-B Natriuret Pep 1560 (0-1800) pg/mL Serum Total Protein 6.9 (6.3-8.2) g/dL Albumin 4.2 (3.5-5.0) g/dL - Progress Progress: improved, re-examined Air Movement: good Progress Note: 07/12/21 06:17 76-year-old is evaluated for palpitations. Patient had a heart rate in 180s on presentation fairly regular rhythm. I believe patient has SVT, given adenosine 6 mg x 1 and converted to normal sinus rhythm. Also given magnesium. Will do chest pain work-up. 07/12/21 06:54 Patient is asymptomatic with heart rate in 70s and 60s. Normal white count, negative troponin. Chest x-ray reviewed by me did not reveal any obvious acute process. Official report is pending. Symptoms are less concerning for CAD, do not think needs second troponin patient does follow-up with Dr. Monterroso, which she is advised to call his office for possible ablation if needed. Discussed signs symptoms of worsening needing return to ER which he seems understanding. Stable for discharge. Blood Culture(s) Obtained: No Antibiotics given: No Counseled pt/family regarding: lab results, diagnosis, need for follow-up, rad results - Departure Departure Disposition: Home Clinical Impression: SVT (supraventricular tachycardia) Condition: Stable Critical Care Time: No Referrals: LEO CHRISTIANSON MD [Primary Care Provider] - Follow up/PCP as directed (1-2 days for reevaluation) MANUELA MONTERROSO MD [CONSULTING PHYSICIAN] - Follow up/PCP as directed (Call today for appointment for reevaluation.) Instructions: Supraventricular Tachycardia (SVT), Tachycardia (DC) Additional Instructions: Follow-up with your primary care and electrical electronics technician for reevaluation. Return to ER if again having palpitations, chest tightness pressure/pain/difficulty breathing etc. Continue with your current medications.
[2021-07-12 06:21] LABS: ALBUMIN 4.2 g/dL (3.5-5.0); ALKALINE PHOSPHATASE 61 U/L (38-126); ANION GAP 15.1 MEQ/L (5-15); BLOOD UREA NITROGEN 13 mg/dL (9-20); CHLORIDE 107 mmol/L (98-107); Carbon Dioxide 23 mmol/L (22-30); EST GLOMERULAR FILTRATION RATE > 60.0 ML/MIN; Glucose 151 mg/dL (74-106); NT PRO BNP 1560 pg/mL (0-1800); Potassium 4.4 mmol/L (3.5-5.1); SGOT/AST 22 U/L (17-59); SGPT/ALT 18 U/L (0-50); SODIUM 141 mmol/L (137-145); Total Protein 6.9 g/dL (6.3-8.2)
[2021-07-12 07:23] VITALS: BP 108/61; PULSE 67; O2SAT 98
--- NOTE | 2021-07-12 08:56 | XRAY ---
Indication: Palpitations. Comparison: April 08, 2021. Portable apical lordotic chest remains clear. Heart not enlarged. Bony thorax intact again with mild osteopenia and degenerative changes. No new/acute findings.
== END 2021-07-12 07:31 | disposition home or self-care (01) ==
LOC: ED 05:36
DX: I47.1 Supraventricular tachycardia (principal); I10 Essential (primary) hypertension; E78.5 Hyperlipidemia, unspecified; Z79.899 Other long term (current) drug therapy
CPT/HCPCS: 36000; 36415; 71045; 80053; 83880; 84484; 85025; 93005; 93041; 96374; 96375; 99284; J0153; J2405; J3475; A9270-GY